=== PATIENT | female | born 1965 | race American Indian/Alaskan Native ===

== ENCOUNTER 2020-02-04 07:17 | Emergency (ER) | payer SELFPAY ==
--- NOTE | 2020-02-04 07:58 | XRay Report ---
CHEST 1 VIEW INDICATION: Chest Pain. Nausea and vomiting. COMPARISON: 07/16/2019 FINDINGS: Support devices: None. Heart: Within normal limits. Lungs/Pleura: No acute air space or interstitial disease. Additional findings: None. IMPRESSION: No acute findings. Signer Name: Johnny Martinez Jr, MD Signed: 02/04/2020 7:54 AM Workstation Name: [id number]
[2020-02-04 08:01] LABS: Basophils % (Auto) 0.4 % (0.0-1.8); Eosinophils % (Auto) 0.3 % (0.0-4.3); Hematocrit 38.5 % (30.3-42.9); Hemoglobin 13.2 gm/dl (10.1-14.3); Lymphocytes % (Auto) 15.2 % (13.4-35.0); Mean Corpuscular HGB Conc 34 % (30-34); Mean Corpuscular Volume 87 fl (79-97); Monocytes # (Auto) 0.3 K/mm3 (0.0-0.8); Platelet Count 313 K/mm3 (140-440); Red Blood Count 4.45 M/mm3 (3.65-5.03)
[2020-02-04 08:12] LABS: INR 0.94 (0.87-1.13)
[2020-02-04 08:13] LABS: Partial Thromboplastin Time 28.3 Sec. (24.2-36.6)
--- NOTE | 2020-02-04 09:27 | Emergency Department Report ---
ED General Adult HPI - General Chief complaint: Chest Pain Stated complaint: RT SIDE BREAST PAIN/HBP Time Seen by Provider: 02/04/20 09:25 Source: patient Mode of arrival: Ambulatory Limitations: No Limitations - History of Present Illness Initial comments: This is a 54-year-old female who states that she has been compliant with her blood pressure medication. She states the only medicine she takes is lisinopril. She presented to the emergency department with elevated blood pressure. She complained of "my ribs are hurting". By this she indicated the right costal area. She denies cough or fever. She denies dyspnea. She states that the area is sore to the touch and hurts when she bends or twists and also hurts in the lower back. The area has been sore since yesterday. She does not recall a specific strain or activity associated with the pain. Patient has been admitted to the hospital with accelerated hypertension and chest pain in June 2019. 07/14 Discharge Summary: 53-year-old female with a past medical history of asthma, sickle cell trait, arthritis and hypertension who presents to ER with complaints of difficulty in breathing, chest tightness and palpitations since this evening. Patient states she was at work when she felt like her "heart was racing through her chest', she took her inhaler and went home. Throughout the night, the chest tightness returned and she decided to come to the ER. She describes midsternal chest pain, 10/10 as sudden, sharp with radiation to her neck. She states it has been relieved by rest and exacerbated with movement and deep breathing. Patient denies fever, chills or syncopal events. \\ Patient on admission was seen by cardiology had an echocardiogram which revealed abnormal diastolic dysfunction but with preserved EF. Stress test was done was negative. Family at bedside reports that the patient has been having elevated blood pressure BP medications were adjusted blood pressure is improved at our facility and will be discharged on prescription. No evidence of worsening shortness of breath She reports some cough Hypertensive urgency (malignant) resolved counseling provided to the patient Asthma exacerbation with hypoxia-patient discharged with tapering dose of steroid Atypical chest-likely secondary to acute bronchitis considering cough and tightness in the chest. Hypokalemia Tobacco use disorder-status of counseling provided to the patient on need to quit tobacco use she verbalized understanding -: Gradual Location: chest Radiation: non-radiation (Does not radiate to the back but also hurts in the lower back) Quality: aching Consistency: intermittent Improves with: none Worsens with: none Associated Symptoms: denies other symptoms - Related Data Home Medications Medication Instructions Recorded Confirmed Last Taken Methocarbamol [Robaxin] 500 mg PO BID 07/17/19 07/17/19 Unknown Previous Rx's Medication Instructions Recorded Last Taken Type Albuterol Mdi (or & Nicu Only) 2 puff IH QID PRN #8.5 gram 07/17/19 Unknown Rx [ProAir HFA Inhaler] AtorvaSTATin [Lipitor] 40 mg PO QHS #30 tablet 07/17/19 Unknown Rx lisinopriL [Zestril TAB] 20 mg PO DAILY #60 tab 07/17/19 Unknown Rx methylPREDNISolone [Medrol 4MG 4 mg PO . DIR #1 tab.ds.pk 07/17/19 Unknown Rx DOSEPAK (21 tabs)] Lisinopril/Hydrochlorothiazide 1 each PO DAILY #30 tablet 02/04/20 Unknown Rx [Zestoretic 10-12.5 mg Tablet] traMADoL [Ultram] 50 mg PO Q6HR PRN #10 tablet 02/04/20 Unknown Rx Allergies Allergy/AdvReac Type Severity Reaction Status Date / Time codeine Allergy Swelling Verified 07/17/19 00:11 Sulfa (Sulfonamide Allergy Swelling Verified 07/17/19 00:11 Antibiotics) IV DYE Allergy Swelling Uncoded 07/17/19 00:11 ED Review of Systems ROS: Stated complaint: RT SIDE BREAST PAIN/HBP Other details as noted in HPI Constitutional: denies: chills, fever Eyes: denies: eye pain, eye discharge, vision change ENT: denies: ear pain, throat pain Respiratory: denies: cough, shortness of breath, wheezing Cardiovascular: chest pain. denies: palpitations Endocrine: no symptoms reported Gastrointestinal: denies: abdominal pain, nausea, diarrhea Genitourinary: denies: urgency, dysuria, discharge Musculoskeletal: back pain. denies: joint swelling, arthralgia Skin: denies: rash, lesions Neurological: denies: headache, weakness, paresthesias Psychiatric: denies: anxiety, depression Hematological/Lymphatic: denies: easy bleeding, easy bruising ED Past Medical Hx - Past Medical History Hx Hypertension: Yes Hx Sickle Cell Disease: Yes Hx Asthma: Yes - Surgical History Past Surgical History?: No - Social History Smoking Status: Former Smoker - Medications Home Medications: Home Medications Medication Instructions Recorded Confirmed Last Taken Type Albuterol Mdi (or & Nicu Only) 2 puff IH QID PRN #8.5 gram 07/17/19 Unknown Rx [ProAir HFA Inhaler] AtorvaSTATin [Lipitor] 40 mg PO QHS #30 tablet 07/17/19 Unknown Rx Methocarbamol [Robaxin] 500 mg PO BID 07/17/19 07/17/19 Unknown History lisinopriL [Zestril TAB] 20 mg PO DAILY #60 tab 07/17/19 Unknown Rx methylPREDNISolone [Medrol 4MG 4 mg PO . DIR #1 tab.ds.pk 07/17/19 Unknown Rx DOSEPAK (21 tabs)] Lisinopril/Hydrochlorothiazide 1 each PO DAILY #30 tablet 02/04/20 Unknown Rx [Zestoretic 10-12.5 mg Tablet] traMADoL [Ultram] 50 mg PO Q6HR PRN #10 tablet 02/04/20 Unknown Rx ED Physical Exam - General Limitations: No Limitations General appearance: alert, in no apparent distress - Head Head exam: Present: atraumatic, normocephalic - Eye Eye exam: Present: normal appearance. Absent: scleral icterus - ENT ENT exam: Present: mucous membranes moist - Neck Neck exam: Present: normal inspection - Respiratory Respiratory exam: Present: normal lung sounds bilaterally, chest wall tenderness (Very reproducible discomfort to palpation of the right costal area). Absent: respiratory distress - Cardiovascular Cardiovascular Exam: Present: regular rate, normal rhythm. Absent: systolic mu rmur, diastolic murmur, rubs, gallop - GI/Abdominal GI/Abdominal exam: Present: soft, normal bowel sounds. Absent: distended, tenderness, guarding, rebound, rigid - Extremities Exam Extremities exam: Present: normal inspection - Back Exam Back exam: Present: normal inspection. Absent: CVA tenderness (R), CVA tenderness (L), muscle spasm, paraspinal tenderness, vertebral tenderness - Neurological Exam Neurological exam: Present: alert, oriented X3, CN II-XII intact. Absent: motor sensory deficit - Psychiatric Psychiatric exam: Present: normal affect, normal mood - Skin Skin exam: Present: warm, dry, intact, normal color. Absent: rash ED Course Vital Signs 08/12/20 08/12/20 08/12/20 07:21 09:59 11:57 Temperature 97.5 F L 98.3 F Pulse Rate 108 H 67 56 L Respiratory 16 18 Rate Blood Pressure 194/110 212/108 Blood Pressure 120/74 [Right] O2 Sat by Pulse 99 100 Oximetry - Reevaluation(s) Reevaluation #1: Patient states that she has never had a CT exam before but she is allergic to iodine. She states that she was told this at [facility] when her "face swelled up". As such we did not proceed with a CT examination with contrast. A VQ scan was ordered. It was negative. The patient's pain is highly reproducible. I do not think she requires further work-up. She is quite comfortable at this time. We will refer to outpatient for follow-up and further management of her hypertension. 02/04/20 13:55 Reevaluation #2: Patient's blood pressure is now 174/67. She has some persistent systolic hypertension. She states that she takes lisinopril 10. I am going to change that to lisinopril with a diuretic. We will give her an analgesic as well. She is appropriate for outpatient follow-up 02/04/20 13:59 ED Medical Decision Making - Lab Data Result diagrams: 02/04/20 07:47 02/04/20 07:47 Laboratory Results - last 24 hr 02/04/20 02/04/20 02/04/20 07:47 07:47 07:47 WBC 6.7 RBC 4.45 Hgb 13.2 Hct 38.5 MCV 87 MCH 30 MCHC 34 RDW 14.0 Plt Count 313 Lymph % (Auto) 15.2 [place] % (Auto) 5.0 Eos % (Auto) 0.3 Baso % (Auto) 0.4 Lymph # 1.0 L [place] # 0.3 Eos # 0.0 Baso # 0.0 Seg Neutrophils % 79.1 H Seg Neutrophils # 5.3 PT 12.8 INR 0.94 APTT 28.3 D-Dimer 253.47 H Sodium 142 Potassium 4.2 Chloride 102.0 Carbon Dioxide 27 Anion Gap 17 BUN 8 Creatinine 0.5 L Estimated GFR > 60 BUN/Creatinine Ratio 16 Glucose 141 H Calcium 10.0 Magnesium Total Bilirubin Direct Bilirubin Indirect Bilirubin AST ALT Alkaline Phosphatase Total Creatine Kinase CK-MB (CK-2) CK-MB (CK-2) Rel Index Troponin T < 0.010 NT-Pro-B Natriuret Pep Total Protein Albumin Albumin/Globulin Ratio Blood Type Antibody Screen 02/04/20 02/04/20 02/04/20 10:16 10:16 10:16 WBC RBC Hgb Hct MCV MCH MCHC RDW Plt Count Lymph % (Auto) [place] % (Auto) Eos % (Auto) Baso % (Auto) Lymph # [place] # Eos # Baso # Seg Neutrophils % Seg Neutrophils # PT 13.6 INR 1.02 APTT 25.6 D-Dimer Sodium Potassium Chloride Carbon Dioxide Anion Gap BUN Creatinine Estimated GFR BUN/Creatinine Ratio Glucose Calcium Magnesium Total Bilirubin Direct Bilirubin Indirect Bilirubin AST ALT Alkaline Phosphatase Total Creatine Kinase 179 H CK-MB (CK-2) 1.7 CK-MB (CK-2) Rel Index 0.9 Troponin T < 0.010 NT-Pro-B Natriuret Pep Total Protein Albumin Albumin/Globulin Ratio Blood Type Antibody Screen 02/04/20 02/04/20 10:16 10:19 WBC RBC Hgb Hct MCV MCH MCHC RDW Plt Count Lymph % (Auto) [place] % (Auto) Eos % (Auto) Baso % (Auto) Lymph # [place] # Eos # Baso # Seg Neutrophils % Seg Neutrophils # PT INR APTT D-Dimer Sodium Potassium Chloride Carbon Dioxide Anion Gap BUN Creatinine Estimated GFR BUN/Creatinine Ratio Glucose Calcium Magnesium 2.00 Total Bilirubin 0.70 Direct Bilirubin < 0.2 Indirect Bilirubin 0.5 AST 17 ALT 11 Alkaline Phosphatase 82 Total Creatine Kinase CK-MB (CK-2) CK-MB (CK-2) Rel Index Troponin T NT-Pro-B Natriuret Pep 76.82 Total Protein 6.9 Albumin 4.1 Albumin/Globulin Ratio 1.5 Blood Type B POSITIVE Antibody Screen Negative - EKG Data -: EKG Interpreted by In EKG shows normal: sinus rhythm, axis, intervals, QRS complexes, ST-T waves Rate: normal - EKG Data Interpretation: nonspecific ST-T wave jos, other (1 PVC) - Radiology Data Radiology results: report reviewed (VQ scan very low probability of pulmonary embolism) Critical care attestation.: If time is entered above; I have spent that time in minutes in the direct care of this critically ill patient, excluding procedure time. ED Disposition Clinical Impression: Poorly-controlled hypertension, Chest wall pain Disposition: DC- TO HOME OR SELFCARE Is pt being admited?: No Does the pt Need Aspirin: No Condition: Stable Instructions: Chest Pain (ED) Additional Instructions: Follow-up with primary care clinic. Return to emergency department any acute change or problem. Prescriptions: traMADoL [Ultram] 50 mg PO Q6HR PRN #10 tablet PRN Reason: Pain Lisinopril/Hydrochlorothiazide [Zestoretic 10-12.5 mg Tablet] 1 each PO DAILY #30 tablet Referrals: [facility] [Provider Group] - 2-3 Days Time of Disposition: 14:00
[2020-02-04] MEDS ORDERED: MORPHINE 2 MG/1 ML INJ IV ONE (09:34)
[2020-02-04] MEDS ORDERED: ONDANSETRON 4 MG/2 ML INJ IV ONE (09:34)
[2020-02-04 10:42] LABS: Blood Urea Nitrogen 8 mg/dL (7-17); Hemolysis Index 8
[2020-02-04 10:47] LABS: BUN/Creatinine Ratio 16
--- NOTE | 2020-02-04 11:15 | Nuclear Medicine Report ---
NUCLEAR MEDICINE PERFUSION ONLY LUNG SCAN HISTORY: Right-sided chest pain, shortness of breath TECHNIQUE: Multiple projections of the chest were obtained following injection of 5.5 mCi of techneti um 99m MAA. COMPARISON: AP chest performed the same day. FINDINGS: There is homogeneous distribution of the radiotracer throughout both lungs. No segmental pe rfusion defect is identified. IMPRESSION: Very low probability for pulmonary embolus. Signer Name: Johnny Martinez Jr, MD Signed: 02/04/2020 11:10 AM Workstation Name: [id number]
[2020-02-04 11:23] LABS: INR 1.02 (0.87-1.13)
[2020-02-04 11:24] LABS: Partial Thromboplastin Time 25.6 Sec. (24.2-36.6)
[2020-02-04 11:31] LABS: Creatine Kinase MB 1.7 ng/mL (0.0-4.0)
[2020-02-04 11:35] LABS: Alanine Aminotransferase 11 units/L (7-56); Albumin 4.1 g/dL (3.9-5)
[2020-02-04 11:42] LABS: Bilirubin,Direct < 0.2 mg/dL (0-0.2)
[2020-02-04 11:59] VITALS: BP 120/74
[2020-02-04] MEDS ORDERED: traMADol 50 MG TAB PO ONE (14:02)
== END 2020-02-04 15:12 | disposition home or self-care (01) ==
LOC: ED 07:17
DX: I10 Essential (primary) hypertension (principal); R07.89 Other chest pain; J45.909 Unspecified asthma, uncomplicated; Z79.899 Other long term (current) drug therapy; Z88.6 Allergy status to analgesic agent; Z88.2 Allergy status to sulfonamides; Z91.041 Radiographic dye allergy status; Z87.891 Personal history of nicotine dependence
CPT/HCPCS: 36415; 71045; 78580; 80048; 80076; 82550; 82553; 83735; 83880; 84484; 85025; 85379; 85610; 85730; 86850; 86900; 86901; 93005; 96374; 96375; 99284; A9540; J2270; J2405

== ENCOUNTER 2020-04-04 09:00 | Emergency (ER) | payer SELFPAY ==
[2020-04-04 09:07] VITALS: BP 153/87
--- NOTE | 2020-04-04 09:41 | Emergency Department Report ---
ED ENT HPI - General Chief complaint: Dental/Oral Stated complaint: TEETH PAIN/SORE THROAT Time Seen by Provider: 04/04/20 09:32 Source: patient Mode of arrival: Ambulatory Limitations: No Limitations - History of Present Illness Initial comments: The patient was evaluated in the emergency department for symptoms described in the history of present illness. He/she was evaluated in the context of the global COVID-19 pandemic, which necessitated consideration that the patient might be at risk for infection with the virus that causes COVID-19. Instit utional protocols and algorithms that pertain to the evaluation of patients at risk for COVID-19 are in a state of rapid change based on information released by regulatory bodies including the CDC and federal and state organizations. These policies and algorithms were followed during the patient's care in the emergency department. Please note that these policies, procedures and recommendations changed on a rapid basis. 54-year-old -[place] female presents to the emergency room for 2-day history of dental pain located in the left upper jaw. Patient reports that she feels she has an abscess. Patient is aware that she has multiple dental caries. Patient denies any fever chills no nausea no vomiting. Patient states she last took ibuprofen last night which did not help much. Patient does admit to multiple allergies to codeine and sulfur and iodine. Patient does have a history of hypertension and takes her blood pressure medications as prescribed. MD complaint: tooth pain Onset/Timin -: days(s) Location: tooth # (14,15 19) Severity: severe Severity scale (0 -10): 9 Quality: stabbing, aching, sharp Consistency: constant Improves with: none Worsens with: eating Associated Symptoms: gum swelling, toothache - Related Data Home Medications Medication Instructions Recorded Confirmed Last Taken Methocarbamol [Robaxin] 500 mg PO BID 07/17/19 07/17/19 Unknown Previous Rx's Medication Instructions Recorded Last Taken Type Albuterol Mdi (or & Nicu Only) 2 puff IH QID PRN #8.5 gram 07/17/19 Unknown Rx [ProAir HFA Inhaler] AtorvaSTATin [Lipitor] 40 mg PO QHS #30 tablet 07/17/19 Unknown Rx lisinopriL [Zestril TAB] 20 mg PO DAILY #60 tab 07/17/19 Unknown Rx methylPREDNISolone [Medrol 4MG 4 mg PO . DIR #1 tab.ds.pk 07/17/19 Unknown Rx DOSEPAK (21 tabs)] Lisinopril/Hydrochlorothiazide 1 each PO DAILY #30 tablet 02/04/20 Unknown Rx [Zestoretic 10-12.5 mg Tablet] traMADoL [Ultram] 50 mg PO Q6HR PRN #10 tablet 02/04/20 Unknown Rx Clindamycin [Clindamycin CAP] 300 mg PO Q8H 10 Days #30 cap 04/04/20 Unknown Rx Allergies Allergy/AdvReac Type Severity Reaction Status Date / Time codeine Allergy Swelling Verified 07/17/19 00:11 Sulfa (Sulfonamide Allergy Swelling Verified 07/17/19 00:11 Antibiotics) IV DYE Allergy Swelling Uncoded 07/17/19 00:11 ED Dental HPI - General Chief complaint: Dental/Oral Stated complaint: TEETH PAIN/SORE THROAT Time Seen by Provider: 04/04/20 09:32 Source: patient Mode of arrival: Ambulatory Limitations: No Limitations - Related Data Home Medications Medication Instructions Recorded Confirmed Last Taken Methocarbamol [Robaxin] 500 mg PO BID 07/17/19 07/17/19 Unknown Previous Rx's Medication Instructions Recorded Last Taken Type Albuterol Mdi (or & Nicu Only) 2 puff IH QID PRN #8.5 gram 07/17/19 Unknown Rx [ProAir HFA Inhaler] AtorvaSTATin [Lipitor] 40 mg PO QHS #30 tablet 07/17/19 Unknown Rx lisinopriL [Zestril TAB] 20 mg PO DAILY #60 tab 07/17/19 Unknown Rx methylPREDNISolone [Medrol 4MG 4 mg PO . DIR #1 tab.ds.pk 07/17/19 Unknown Rx DOSEPAK (21 tabs)] Lisinopril/Hydrochlorothiazide 1 each PO DAILY #30 tablet 02/04/20 Unknown Rx [Zestoretic 10-12.5 mg Tablet] traMADoL [Ultram] 50 mg PO Q6HR PRN #10 tablet 02/04/20 Unknown Rx Clindamycin [Clindamycin CAP] 300 mg PO Q8H 10 Days #30 cap 04/04/20 Unknown Rx Allergies Allergy/AdvReac Type Severity Reaction Status Date / Time codeine Allergy Swelling Verified 07/17/19 00:11 Sulfa (Sulfonamide Allergy Swelling Verified 07/17/19 00:11 Antibiotics) IV DYE Allergy Swelling Uncoded 07/17/19 00:11 ED Review of Systems ROS: Stated complaint: TEETH PAIN/SORE THROAT Other details as noted in HPI ED Past Medical Hx - Past Medical History Previous Medical History?: Yes Hx Hypertension: Yes Hx Sickle Cell Disease: No (Sickle cell trait) Hx Asthma: Yes - Surgical History Past Surgical History?: No - Social History Smoking Status: Former Smoker Substance Use Type: None - Medications Home Medications: Home Medications Medication Instructions Recorded Confirmed Last Taken Type Albuterol Mdi (or & Nicu Only) 2 puff IH QID PRN #8.5 gram 07/17/19 Unknown Rx [ProAir HFA Inhaler] AtorvaSTATin [Lipitor] 40 mg PO QHS #30 tablet 07/17/19 Unknown Rx Methocarbamol [Robaxin] 500 mg PO BID 07/17/19 07/17/19 Unknown History lisinopriL [Zestril TAB] 20 mg PO DAILY #60 tab 07/17/19 Unknown Rx methylPREDNISolone [Medrol 4MG 4 mg PO . DIR #1 tab.ds.pk 07/17/19 Unknown Rx DOSEPAK (21 tabs)] Lisinopril/Hydrochlorothiazide 1 each PO DAILY #30 tablet 02/04/20 Unknown Rx [Zestoretic 10-12.5 mg Tablet] traMADoL [Ultram] 50 mg PO Q6HR PRN #10 tablet 02/04/20 Unknown Rx Clindamycin [Clindamycin CAP] 300 mg PO Q8H 10 Days #30 cap 04/04/20 Unknown Rx ED Physical Exam - General Limitations: No Limitations General appearance: alert, in no apparent distress - Head Head exam: Present: atraumatic, normocephalic - Eye Eye exam: Present: normal appearance - ENT ENT exam: Present: mucous membranes moist - Expanded ENT Exam Expanded Teeth exam: Present: dental caries, dental tenderness # (14,19,15), gingival enlargement Throat exam: Positive: normal inspection. Negative: tonsillar erythema, tonsillomegaly, tonsillar exudate - Neck Neck exam: Present: normal inspection, full ROM. Absent: lymphadenopathy - Respiratory Respiratory exam: Present: normal lung sounds bilaterally. Absent: respiratory distress - Cardiovascular Cardiovascular Exam: Present: regular rate, normal rhythm. Absent: systolic murmur, diastolic murmur, rubs, gallop - Back Exam Back exam: Present: normal inspection - Neurological Exam Neurological exam: Present: alert, oriented X3, normal gait - Psychiatric Psychiatric exam: Present: normal affect, normal mood - Skin Skin exam: Present: warm, dry, intact, normal color. Absent: rash ED Course Vital Signs 04/04/20 09:02 Temperature 98.1 F Pulse Rate 104 H Respiratory 20 Rate Blood Pressure 153/87 O2 Sat by Pulse 100 Oximetry ED Medical Decision Making - Medical Decision Making 54-year-old -[place] female presents to the emergency room for 2-day history of dental pain located in the left upper jaw. Patient reports that she feels she has an abscess. Patient is aware that she has multiple dental caries. Patient denies any fever chills no nausea no vomiting. Patient states she last took ibuprofen last night which did not help much. Patient does admit to multiple allergies to codeine and sulfur and iodine. Patient does have a history of hypertension and takes her blood pressure medications as prescribed. Patient be discharged home on clindamycin 300 mg 3 times daily for 10 days instructed to take [id number] ibuprofen or Tylenol for pain management. Heart rate regular rate and rhythm approximately 89 bpm. Patient is stable to be discharged home Critical care attestation.: If time is entered above; I have spent that time in minutes in the direct care of this critically ill patient, excluding procedure time. ED Disposition Clinical Impression: Dental abscess, Dental caries extending into dentin Disposition: DC-01 TO HOME OR SELFCARE Is pt being admited?: No Does the pt Need Aspirin: No Condition: Stable Instructions: Dental Abscess (ED), Dental Caries (ED) Additional Instructions: Complete antibiotics as prescribed. Take Tylenol or ibuprofen as needed for pain management. It is very important for you to follow-up with a dentist. Prescriptions: Clindamycin [Clindamycin CAP] 300 mg PO Q8H 10 Days #30 cap Referrals: [facility] [Outside] - 3-5 Days [facility] [Outside] - 3-5 Days Forms: Work/School Release Form(ED)
== END 2020-04-04 09:56 | disposition home or self-care (01) ==
LOC: ED 09:00
DX: K02.9 Dental caries, unspecified (principal); K04.7 Periapical abscess without sinus; I10 Essential (primary) hypertension; D57.3 Sickle-cell trait; J45.909 Unspecified asthma, uncomplicated; Z79.899 Other long term (current) drug therapy; Z87.891 Personal history of nicotine dependence; Z88.4 Allergy status to anesthetic agent; Z88.2 Allergy status to sulfonamides; Z91.041 Radiographic dye allergy status
CPT/HCPCS: 99282

== ENCOUNTER 2020-07-29 12:03 | Emergency (ER) | payer SELFPAY ==
--- NOTE | 2020-07-29 12:10 | Event Note ---
ED Screening Note Date of service: 07/29/20 Time: 12:09 ED Screening Note: 54-year-old female presents with substernal lower chest pain, shortness of breath and paroxysmal nocturnal dyspnea This initial assessment/diagnostic orders/clinical plan/treatment(s) is/are subject to change based on patients health status, clinical progression and re- assessment by fellow clinical providers in the ED. Further treatment and workup at subsequent clinical providers discretion. Patient/guardian urged not to elope from the ED as their condition may be serious if not clinically assessed and managed. Initial orders include: Cardiac protocol
--- NOTE | 2020-07-29 13:01 | XRay Report ---
CHEST 2 VIEWS INDICATION / CLINICAL INFORMATION: pain. COMPARISON: 02/04/2020 FINDINGS: SUPPORT DEVICES: None. HEART / MEDIASTINUM: No significant abnormality. LUNGS / PLEURA: No significant pulmonary or pleural abnormality. No pneumothorax. ADDITIONAL FINDINGS: No significant additional findings. IMPRESSION: 1. No acute findings. Signer Name: Brian Ramon MD Signed: 07/29/2020 12:56 PM Workstation Name: [id number]
[2020-07-29 13:12] LABS: Basophils % (Auto) 0.6 % (0.0-1.8); Eosinophils # (Auto) 0.1 K/mm3 (0.0-0.4); Eosinophils % (Auto) 0.9 % (0.0-4.3); Hematocrit 37.2 % (30.3-42.9); Hemoglobin 12.9 gm/dl (10.1-14.3); Lymphocytes # (Auto) 1.9 K/mm3 (1.2-5.4); Lymphocytes % (Auto) 34.5 % (13.4-35.0); Mean Corpuscular HGB Conc 35 % (30-34); Mean Corpuscular Volume 87 fl (79-97); Monocytes # (Auto) 0.4 K/mm3 (0.0-0.8); Monocytes % (Auto) 7.3 % (0.0-7.3); Platelet Count 314 K/mm3 (140-440); Red Blood Count 4.28 M/mm3 (3.65-5.03); Red Cell Distribution Width 13.5 % (13.2-15.2)
[2020-07-29 13:15] LABS: Alanine Aminotransferase 10 units/L (7-56); Albumin 4.5 g/dL (3.9-5); Blood Urea Nitrogen 10 mg/dL (7-17); Calcium 9.9 mg/dL (8.4-10.2); Hemolysis Index 0
[2020-07-29 13:19] LABS: INR 0.97 (0.87-1.13)
[2020-07-29 13:20] LABS: BUN/Creatinine Ratio 20; Partial Thromboplastin Time 26.8 Sec. (24.2-36.6)
[2020-07-29] MEDS ORDERED: hydroCHLOROthiazide 25 MG TAB PO ONE (14:27)
[2020-07-29] MEDS ORDERED: LISINOPRIL 20 MG TAB PO ONE (14:27)
--- NOTE | 2020-07-29 15:00 | Emergency Department Report ---
ED Chest Pain HPI - General Chief Complaint: Chest Pain Stated Complaint: CHEST PAIN/ABCESS Time Seen by Provider: 07/29/20 13:35 Source: patient Mode of arrival: Ambulatory Limitations: No Limitations - History of Present Illness Initial Comments: CC: I know something is wrong with my body. HPI: This is a 54 yo female with hx of HTN, asthma, thyroid disease and hypercholesterolemia who presents with fatigue, chills, sore throat, body aches and cough for 2 weeks. 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 Patient has multiple contacts. She is unclear if she had COVID-19 exposure. She was tested for COVID-19 at outside hospital 1 week ago. Patient denies chest pain headache. She explains that she has a burning feeling tingling sensation throughout her body. She does not have any discrete discomfort. Patient has been lost to follow-up with primary care since moving to [facility] 1 year ago. She was followed previously at clinics to [facility]. Patient has attempted to obtain care at [facility]. However due to COVID-19 pandemic, most medical practices are full. MD Complaint: chest pain -: week(s) (2 weeks) Onset: during rest Severity: mild Quality: other (Burning sensation throughout her body) Consistency: now resolved Improves With: nothing Worsens With: nothing Context: other (Associated with chills cough body aches sore throat) Treatments Prior to Arrival: other (Evaluation [facility] 1 week ago recent negative COVID-19 test) - Related Data Home Medications Medication Instructions Recorded Confirmed Last Taken Methocarbamol [Robaxin] 500 mg PO BID 07/17/19 07/17/19 Unknown Previous Rx's Medication Instructions Recorded Last Taken Type Albuterol Mdi (or & Nicu Only) 2 puff IH QID PRN #8.5 gram 07/17/19 Unknown Rx [ProAir HFA Inhaler] AtorvaSTATin [Lipitor] 40 mg PO QHS #30 tablet 07/17/19 Unknown Rx lisinopriL [Zestril TAB] 20 mg PO DAILY #60 tab 07/17/19 Unknown Rx methylPREDNISolone [Medrol 4MG 4 mg PO . DIR #1 tab.ds.pk 07/17/19 Unknown Rx DOSEPAK (21 tabs)] Lisinopril/Hydrochlorothiazide 1 each PO DAILY #30 tablet 02/04/20 Unknown Rx [Zestoretic 10-12.5 mg Tablet] traMADoL [Ultram] 50 mg PO Q6HR PRN #10 tablet 02/04/20 Unknown Rx Clindamycin [Clindamycin CAP] 300 mg PO Q8H 10 Days #30 cap 04/04/20 Unknown Rx Lisinopril/Hydrochlorothiazide 1 each PO DAILY #30 tablet 07/29/20 Unknown Rx [Zestoretic 20-12.5 mg] Allergies Allergy/AdvReac Type Severity Reaction Status Date / Time codeine Allergy Swelling Verified 07/17/19 00:11 Sulfa (Sulfonamide Allergy Swelling Verified 07/17/19 00:11 Antibiotics) IV DYE Allergy Swelling Uncoded 07/17/19 00:11 Heart Score - HEART Score History: Slightly suspicious EKG: Normal Age: 45-65 Risk factors: 1-2 risk factors Troponin: < normal limit HEART Score: 2 ED Review of Systems ROS: Stated complaint: CHEST PAIN/ABCESS Other details as noted in HPI Comment: All other systems reviewed and negative Constitutional: chills. denies: fever, malaise Respiratory: cough, shortness of breath Cardiovascular: chest pain ED Past Medical Hx - Past Medical History Previous Medical History?: Yes Hx Hypertension: Yes Hx Sickle Cell Disease: No (Sickle cell trait) Hx Asthma: Yes - Surgical History Past Surgical History?: No - Social History Smoking Status: Never Smoker Substance Use Type: None - Medications Home Medications: Home Medications Medication Instructions Recorded Confirmed Last Taken Type Albuterol Mdi (or & Nicu Only) 2 puff IH QID PRN #8.5 gram 07/17/19 Unknown Rx [ProAir HFA Inhaler] AtorvaSTATin [Lipitor] 40 mg PO QHS #30 tablet 07/17/19 Unknown Rx Methocarbamol [Robaxin] 500 mg PO BID 07/17/19 07/17/19 Unknown History lisinopriL [Zestril TAB] 20 mg PO DAILY #60 tab 07/17/19 Unknown Rx methylPREDNISolone [Medrol 4MG 4 mg PO . DIR #1 tab.ds.pk 07/17/19 Unknown Rx DOSEPAK (21 tabs)] Lisinopril/Hydrochlorothiazide 1 each PO DAILY #30 tablet 02/04/20 Unknown Rx [Zestoretic 10-12.5 mg Tablet] traMADoL [Ultram] 50 mg PO Q6HR PRN #10 tablet 02/04/20 Unknown Rx Clindamycin [Clindamycin CAP] 300 mg PO Q8H 10 Days #30 cap 04/04/20 Unknown Rx Lisinopril/Hydrochlorothiazide 1 each PO DAILY #30 tablet 07/29/20 Unknown Rx [Zestoretic 20-12.5 mg] ED Physical Exam - General Limitations: No Limitations General appearance: alert, in no apparent distress - Head Head exam: Present: atraumatic, normocephalic - Eye Eye exam: Present: normal appearance - ENT ENT exam: Present: mucous membranes moist - Neck Neck exam: Present: normal inspection, full ROM - Respiratory Respiratory exam: Present: normal lung sounds bilaterally. Absent: respiratory distress, wheezes, rales, rhonchi - Cardiovascular Cardiovascular Exam: Present: regular rate, normal rhythm, normal heart sounds. Absent: systolic murmur, diastolic murmur, rubs, gallop - GI/Abdominal GI/Abdominal exam: Present: soft, normal bowel sounds. Absent: distended, tenderness, guarding, rebound - Extremities Exam Extremities exam: Present: normal inspection - Neurological Exam Neurological exam: Present: alert, oriented X3 - Psychiatric Psychiatric exam: Present: normal affect, normal mood - Skin Skin exam: Present: warm, dry, intact, normal color. Absent: rash ED Course Vital Signs 07/29/20 07/29/20 07/29/20 12:11 13:25 13:31 Temperature 98.1 F Pulse Rate 104 H 87 81 Respiratory 18 16 21 Rate Blood Pressure 184/109 191/121 O2 Sat by Pulse 95 100 99 Oximetry ED Medical Decision Making - Lab Data Result diagrams: 07/29/20 12:39 07/29/20 12:39 Abnormal Lab Results 07/29/20 07/29/20 07/29/20 12:39 12:39 12:39 WBC 5.5 RBC 4.28 Hgb 12.9 Hct 37.2 MCV 87 MCH 30 MCHC 35 H RDW 13.5 Plt Count 314 Lymph % (Auto) 34.5 [place] % (Auto) 7.3 Eos % (Auto) 0.9 Baso % (Auto) 0.6 Lymph # (Auto) 1.9 [place] # (Auto) 0.4 Eos # (Auto) 0.1 Baso # (Auto) 0.0 Seg Neutrophils % 56.7 Seg Neutrophils # 3.1 PT 12.8 INR 0.97 APTT 26.8 Sodium 141 Potassium 3.7 Chloride 100.6 Carbon Dioxide 30 Anion Gap 14 BUN 10 Creatinine 0.5 L Estimated GFR > 60 BUN/Creatinine Ratio 20 Glucose 84 Calcium 9.9 Total Bilirubin 0.90 AST 17 ALT 10 Alkaline Phosphatase 90 Troponin T < 0.010 Total Protein 7.4 Albumin 4.5 Albumin/Globulin Ratio 1.6 Lipase 28 - EKG Data -: EKG Interpreted by Me EKG shows normal: sinus rhythm, axis, intervals, QRS complexes, ST-T waves Rate: normal - EKG Data Interpretation: normal EKG - Radiology Data Radiology results: report reviewed, image reviewed Chest radiograph: No acute findings - Medical Decision Making This is a 54-year-old female who presents with fatigue chills body aches sore throat cough shortness of breath for 2 weeks. I suspect COVID-19 infection. I recommended self-isolation self quarantine until she receives a negative test. Patient had atypical chest pain. She did not endorse chest pain to me. She endorsed chest pain to the provider triage. Heart score 2. Troponin negative. I do not suspect ACS or life-threatening emergent cause. Patient also is highly concerned that she has not had primary access to medical care. I did refill her blood pressure medication 90-day supply. No evidence of endorgan damage. CBC chemistry troponin within normal limits. I have provided referral to our outpatient medicine physician. Critical care attestation.: If time is entered above; I have spent that time in minutes in the direct care of this critically ill patient, excluding procedure time. ED Disposition Clinical Impression: Hypertensive urgency, Suspected COVID-19 virus infection Disposition: DC-01 TO HOME OR SELFCARE Is pt being admited?: No Does the pt Need Aspirin: No Condition: Stable Instructions: Hypertension, Adult, [id number] Prescriptions: Lisinopril/Hydrochlorothiazide [Zestoretic 20-12.5 mg] 1 each PO DAILY #30 tablet Referrals: KELLI BEDOLLA MD [Staff Physician] - 3-5 Days
[2020-07-29 15:33] VITALS: BP 151/92
== END 2020-07-29 15:33 | disposition home or self-care (01) ==
LOC: ED 12:03
DX: I16.0 Hypertensive urgency (principal); J45.909 Unspecified asthma, uncomplicated; Z20.828 Contact with and (suspected) exposure to other viral communicable diseases; Z88.2 Allergy status to sulfonamides; Z88.8 Allergy status to other drugs, medicaments and biological substances; Z79.899 Other long term (current) drug therapy
CPT/HCPCS: 36415; 71046; 80053; 83690; 84484; 85025; 85610; 85730; 93005

== ENCOUNTER 2020-09-25 10:22 | Emergency (ER) | payer SELFPAY ==
[2020-09-25 10:39] VITALS: BP 155/89
[2020-09-25] MEDS ORDERED: ACETAMINOPHEN 325 MG TAB PO ONE (10:52)
--- NOTE | 2020-09-25 10:55 | Event Note ---
ED Screening Note Date of service: 09/25/20 Time: 10:53 ED Screening Note: pt has pmhx of HTN and asthma c/o lower back pain/right flank pain, abdominal pain, bilateral hand pain, dysuria and urinary frequency since yesterday she denies vomiting, nausea, bowel changes, chest pain, sob, cough or uri symptoms, fever or chills This initial assessment/diagnostic orders/clinical plan/treatment(s) is/are subject to change based on patients health status, clinical progression and re- assessment by fellow clinical providers in the ED. Further treatment and workup at subsequent clinical providers discretion. Patient/guardian urged not to elope from the ED as their condition may be serious if not clinically assessed and managed. Initial orders include: Labs/UA
[2020-09-25 11:31] LABS: Bilirubin,Urine NEG (Negative); Blood,Urine MOD (Negative); Color,Urine Yellow (Yellow); Hyaline Casts,Urine 1 /LPF; Mucus,Urine FEW /HPF; Protein,Urine <15 mg/dL mg/dL (Negative); Urobilinogen,Urine < 2.0 mg/dL (<2.0); WBC,Urine < 1.0 /HPF (0.0-6.0)
[2020-09-25 12:27] LABS: Basophils % (Auto) 0.6 % (0.0-1.8); Eosinophils % (Auto) 0.3 % (0.0-4.3); Hematocrit 35.6 % (30.3-42.9); Hemoglobin 12.3 gm/dl (10.1-14.3); Lymphocytes # (Auto) 1.3 K/mm3 (1.2-5.4); Lymphocytes % (Auto) 20.6 % (13.4-35.0); Mean Corpuscular HGB Conc 35 % (30-34); Mean Corpuscular Volume 89 fl (79-97); Monocytes # (Auto) 0.3 K/mm3 (0.0-0.8); Monocytes % (Auto) 4.9 % (0.0-7.3); Platelet Count 301 K/mm3 (140-440); Red Blood Count 4.02 M/mm3 (3.65-5.03); Red Cell Distribution Width 14.5 % (13.2-15.2)
[2020-09-25 12:52] LABS: Alanine Aminotransferase 11 units/L (7-56); Albumin 4.5 g/dL (3.9-5); Blood Urea Nitrogen 13 mg/dL (7-17); Calcium 9.6 mg/dL (8.4-10.2); Hemolysis Index 9
[2020-09-25 12:55] LABS: BUN/Creatinine Ratio 22
[2020-09-25] MEDS ORDERED: KETOROLAC 60 MG/2 ML INJ IM ONE (13:28)
--- NOTE | 2020-09-25 13:44 | Emergency Department Report ---
ED General Adult HPI - General Chief complaint: Back Pain/Injury Stated complaint: RT SIDE PAIN/PAIN WHILE PASSING URINE Time Seen by Provider: 09/25/20 12:55 Source: patient Mode of arrival: Ambulatory Limitations: No Limitations - History of Present Illness Initial comments: This 55-year-old female presents to the emergency room with multiple complaints she complains of lower back pain bilateral hand pain and left external ear pain. She also admits to pain with urination and urinary frequency. All of her symptoms started yesterday. She denies nausea and vomiting no coughing no fever no chest pain no shortness of breath. Patient has a past medical history of rheumatoid arthritis asthma and hypertension. She is in no acute distress states that she took Tylenol at home for pain with no relief. Location: back, upper extremity Quality: aching Consistency: constant Improves with: none Worsens with: none Associated Symptoms: denies: confusion, chest pain, cough, diaphoresis, fever/chills, loss of appetite, malaise, nausea/vomiting, rash, seizure, shortness of breath, syncope, weakness Treatments Prior to Arrival: other (Tylenol) - Related Data Home Medications Medication Instructions Recorded Confirmed Last Taken Methocarbamol [Robaxin] 500 mg PO BID 07/17/19 07/17/19 Unknown Previous Rx's Medication Instructions Recorded Last Taken Type Albuterol Mdi (or & Nicu Only) 2 puff IH QID PRN #8.5 gram 07/17/19 Unknown Rx [ProAir HFA Inhaler] AtorvaSTATin [Lipitor] 40 mg PO QHS #30 tablet 07/17/19 Unknown Rx lisinopriL [Zestril TAB] 20 mg PO DAILY #60 tab 07/17/19 Unknown Rx methylPREDNISolone [Medrol 4MG 4 mg PO . DIR #1 tab.ds.pk 07/17/19 Unknown Rx DOSEPAK (21 tabs)] Lisinopril/Hydrochlorothiazide 1 each PO DAILY #30 tablet 02/04/20 Unknown Rx [Zestoretic 10-12.5 mg Tablet] traMADoL [Ultram] 50 mg PO Q6HR PRN #10 tablet 02/04/20 Unknown Rx Clindamycin [Clindamycin CAP] 300 mg PO Q8H 10 Days #30 cap 04/04/20 Unknown Rx Lisinopril/Hydrochlorothiazide 1 each PO DAILY #30 tablet 07/29/20 Unknown Rx [Zestoretic 20-12.5 mg] Lisinopril/Hydrochlorothiazide 1 each PO DAILY 90 Days #90 tablet 07/29/20 Unknown Rx [Zestoretic 20-12.5 mg] Ibuprofen [Motrin] 600 mg PO Q8H PRN #21 tablet 09/25/20 Unknown Rx Allergies Allergy/AdvReac Type Severity Reaction Status Date / Time codeine Allergy Swelling Verified 07/17/19 00:11 Sulfa (Sulfonamide Allergy Swelling Verified 07/17/19 00:11 Antibiotics) IV DYE Allergy Swelling Uncoded 07/17/19 00:11 ED Review of Systems ROS: Stated complaint: RT SIDE PAIN/PAIN WHILE PASSING URINE Other details as noted in HPI Comment: All other systems reviewed and negative Constitutional: denies: see HPI, fever, malaise, weakness ENT: ear pain (Left ear pain). denies: dental pain, congestion Respiratory: denies: cough, shortness of breath, SOB with exertion, wheezing Cardiovascular: denies: chest pain, palpitations, dyspnea on exertion, edema, syncope, paroxysmal nocturnal dyspnea Endocrine: denies: excessive sweating, flushing, intolerance to cold Gastrointestinal: denies: abdominal pain, nausea Genitourinary: dysuria, frequency Musculoskeletal: back pain Skin: denies: rash, lesions, change in color, change in hair/nails Neurological: denies: headache, weakness, numbness, paresthesias Psychiatric: denies: anxiety, depression, auditory hallucinations, visual hallucinations ED Past Medical Hx - Past Medical History Hx Hypertension: Yes Hx Sickle Cell Disease: No (Sickle cell trait) Hx Asthma: Yes - Social History Smoking Status: Never Smoker - Medications Home Medications: Home Medications Medication Instructions Recorded Confirmed Last Taken Type Albuterol Mdi (or & Nicu Only) 2 puff IH QID PRN #8.5 gram 07/17/19 Unknown Rx [ProAir HFA Inhaler] AtorvaSTATin [Lipitor] 40 mg PO QHS #30 tablet 07/17/19 Unknown Rx Methocarbamol [Robaxin] 500 mg PO BID 07/17/19 07/17/19 Unknown History lisinopriL [Zestril TAB] 20 mg PO DAILY #60 tab 07/17/19 Unknown Rx methylPREDNISolone [Medrol 4MG 4 mg PO . DIR #1 tab.ds.pk 07/17/19 Unknown Rx DOSEPAK (21 tabs)] Lisinopril/Hydrochlorothiazide 1 each PO DAILY #30 tablet 02/04/20 Unknown Rx [Zestoretic 10-12.5 mg Tablet] traMADoL [Ultram] 50 mg PO Q6HR PRN #10 tablet 02/04/20 Unknown Rx Clindamycin [Clindamycin CAP] 300 mg PO Q8H 10 Days #30 cap 04/04/20 Unknown Rx Lisinopril/Hydrochlorothiazide 1 each PO DAILY #30 tablet 07/29/20 Unknown Rx [Zestoretic 20-12.5 mg] Lisinopril/Hydrochlorothiazide 1 each PO DAILY 90 Days #90 tablet 07/29/20 Unknown Rx [Zestoretic 20-12.5 mg] Ibuprofen [Motrin] 600 mg PO Q8H PRN #21 tablet 09/25/20 Unknown Rx ED Physical Exam - General Limitations: No Limitations General appearance: alert, in no apparent distress - Head Head exam: Present: atraumatic, normal inspection - Eye Eye exam: Present: normal appearance - ENT ENT exam: Present: normal exam, mucous membranes moist, TM's normal bilaterally, normal external ear exam - Neck Neck exam: Present: normal inspection. Absent: tenderness, meningismus, lymphadenopathy, thyromegaly - Respiratory Respiratory exam: Present: normal lung sounds bilaterally. Absent: respiratory distress, wheezes, rales - Cardiovascular Cardiovascular Exam: Present: regular rate, normal heart sounds - GI/Abdominal GI/Abdominal exam: Present: soft, normal bowel sounds. Absent: distended, tenderness, guarding, rebound - Extremities Exam Extremities exam: Present: normal inspection - Back Exam Back exam: Present: normal inspection. Absent: CVA tenderness (R), CVA t enderness (L) - Neurological Exam Neurological exam: Present: alert, oriented X3 - Psychiatric Psychiatric exam: Present: normal affect, normal mood - Skin Skin exam: Present: warm, dry, intact, normal color ED Course Vital Signs 09/25/20 10:37 Temperature 98.3 F Pulse Rate 89 Respiratory 18 Rate Blood Pressure 155/89 O2 Sat by Pulse 100 Oximetry ED Medical Decision Making - Lab Data Result diagrams: 09/25/20 11:45 09/25/20 11:45 - Medical Decision Making Ms. Wood 55-year-old lady she states that she has a history of rheumatoid arthritis she complained of back pain increase urine urinary frequency left ear pain and dysuria. On examination there were no abnormal findings. Her urinalysis is negative. After reevaluation patient states that she has been having feeling of effects from the pollen causing her to be more fatigued. Based on findings there is no need for any antibiotic at this time I discussed all findings with patient her pain is relieved which was mostly to her back and her bilateral hands she believes it is related to her arthritis. Plan is for patient to continue all her home meds and follow-up with her primary care doctor Critical Care Time: No Critical care attestation.: If time is entered above; I have spent that time in minutes in the direct care of this critically ill patient, excluding procedure time. ED Disposition Clinical Impression: Back pain Qualifiers: Back pain location: low back pain Chronicity: unspecified Back pain laterality: bilateral Sciatica presence: without sciatica Qualified Code(s): M54.5 - Low back pain Hand joint pain Qualifiers: Laterality: bilateral Qualified Code(s): M25.541 - Pain in joints of right hand; M25.542 - Pain in joints of left hand Disposition: TO HOME OR SELFCARE Is pt being admited?: No Does the pt Need Aspirin: No Condition: Stable Instructions: Joint Pain, Back Injury Prevention, [id number], Hand Exercises Additional Instructions: All your results blood work and urinalysis has no acute findings. Please call your primary care doctor and follow-up with him or her in the next 3 to 5 days. Take ibuprofen as prescribed 1 tablet every 6-8 hours as needed for pain please take with food. If you develop any worsening symptoms such as fever worsening abdominal pain or no improvement of your symptoms please return to the emergency room. Prescriptions: Ibuprofen [Motrin] 600 mg PO Q8H PRN #21 tablet PRN Reason: Pain Referrals: DIANE CHIANG MD [Primary Care Provider] - 3-5 Days KELLI BEDOLLA MD [Staff Physician] - 3-5 Days Time of Disposition: 15:01
== END 2020-09-25 14:00 | disposition home or self-care (01) ==
LOC: ED 10:22
DX: M54.5 Low back pain (principal); M25.541 Pain in joints of right hand; M25.542 Pain in joints of left hand; Z79.899 Other long term (current) drug therapy; Z88.6 Allergy status to analgesic agent; Z88.2 Allergy status to sulfonamides; Z91.041 Radiographic dye allergy status
CPT/HCPCS: 36415; 80053; 81001; 83690; 83735; 85025; 96372; 99283; J1885

== ENCOUNTER 2020-10-30 11:15 | Emergency (ER) | payer SELFPAY ==
[2020-10-30] MEDS ORDERED: ASPIRIN 325 MG TAB PO ONE ×2 (11:48→14:29)
--- NOTE | 2020-10-30 12:26 | XRay Report ---
CHEST 2 VIEWS INDICATION / CLINICAL INFORMATION: chest pain. COMPARISON: 07/29/2020 FINDINGS: SUPPORT DEVICES: None. HEART / MEDIASTINUM: No significant abnormality. LUNGS / PLEURA: No significant pulmonary or pleural abnormality. No pneumothorax. ADDITIONAL FINDINGS: No significant additional findings. IMPRESSION: 1. No acute findings. Signer Name: Jamel Poon MD Signed: 10/30/2020 12:22 PM Workstation Name: [id number]
[2020-10-30 12:30] LABS: Alanine Aminotransferase 13 units/L (7-56); Albumin 4.4 g/dL (3.9-5); Blood Urea Nitrogen 15 mg/dL (7-17); Calcium 9.9 mg/dL (8.4-10.2); Hemolysis Index 3
[2020-10-30 12:31] LABS: BUN/Creatinine Ratio 25
--- NOTE | 2020-10-30 12:32 | Event Note ---
ED Screening Note Date of service: 10/30/20 Time: 12:28 ED Screening Note: 55-year-old -[place] female presents to the emergency room for chest pain off and on x2 days he notes being persistent. She also complains of toothache. Pain is a 10 out of 10. History of hypertension and asthma. This initial assessment/diagnostic orders/clinical plan/treatment(s) is/are subject to change based on patients health status, clinical progression and re- assessment by fellow clinical providers in the ED. Further treatment and workup at subsequent clinical providers discretion. Patient/guardian urged not to elope from the ED as their condition may be serious if not clinically assessed and ma naged. Initial orders include: Cardiac protocol orders have been placed. Patient be evaluated in the main.
[2020-10-30 12:33] LABS: Hematocrit 36.5 % (30.3-42.9); Hemoglobin 12.6 gm/dl (10.1-14.3); Mean Corpuscular HGB Conc 35 % (30-34); Mean Corpuscular Volume 89 fl (79-97); Platelet Count 325 K/mm3 (140-440); Red Cell Distribution Width 14.1 % (13.2-15.2)
--- NOTE | 2020-10-30 12:56 | Emergency Department Report ---
ED Chest Pain HPI - General Chief Complaint: Chest Pain Stated Complaint: TOOTHACHE/CP Time Seen by Provider: 10/30/20 12:50 Source: patient Mode of arrival: Ambulatory Limitations: No Limitations - History of Present Illness Initial Comments: Chief complaint: Chest pain HPI: This is a 55-year-old female with history of asthma and hypertension who presents with 2 days of sharp intermittent chest pain. Chest pain gradual onset. I evaluated this patient earlier this year for similar symptoms. Patient had severe depression anxiety related to strenuous work environment. She has quit her job. She felt much better. She has been symptom-free. She denies any anxiety or depression. She was evaluated at [facility] for similar symptoms. She was evaluated by cardiology at that time. June 2019 she was admitted to this hospital. She underwent cardiac evaluation with cardiology consultation. At that time, July 17, 2019: Patient underwent negative Lexiscan. Normal rest and stress myocardial perfusion scan. No significant stress ischemia. No wall motion abnormality. Ejection fraction 64% Currently patient has severe hypertension. She has been compliant with her antihypertensive medication. She denies depression. She feels as though she is going to pass out. She feels lightheaded. Patient has sharp intermittent midsternal pain is worse with movement. She denies cough. She has mild shortness of breath. MD Complaint: chest pain -: Gradual, days(s) (2 days) Onset: during rest Pain Location: substernal Pain Radiation: none Severity: moderate, severe Severity scale (0 -10): 7 Quality: heaviness Consistency: intermittent Improves With: nothing Worsens With: movement Treatments Prior to Arrival: none - Related Data Home Medications Medication Instructions Recorded Confirmed Last Taken Methocarbamol [Robaxin] 500 mg PO BID 07/17/19 07/17/19 Unknown Previous Rx's Medication Instructions Recorded Last Taken Type Albuterol Mdi (or & Nicu Only) 2 puff IH QID PRN #8.5 gram 07/17/19 Unknown Rx [ProAir HFA Inhaler] AtorvaSTATin [Lipitor] 40 mg PO QHS #30 tablet 07/17/19 Unknown Rx lisinopriL [Zestril TAB] 20 mg PO DAILY #60 tab 07/17/19 Unknown Rx methylPREDNISolone [Medrol 4MG 4 mg PO . DIR #1 tab.ds.pk 07/17/19 Unknown Rx DOSEPAK (21 tabs)] Lisinopril/Hydrochlorothiazide 1 each PO DAILY #30 tablet 02/04/20 Unknown Rx [Zestoretic 10-12.5 mg Tablet] traMADoL [Ultram] 50 mg PO Q6HR PRN #10 tablet 02/04/20 Unknown Rx Clindamycin [Clindamycin CAP] 300 mg PO Q8H 10 Days #30 cap 04/04/20 Unknown Rx Lisinopril/Hydrochlorothiazide 1 each PO DAILY #30 tablet 07/29/20 Unknown Rx [Zestoretic 20-12.5 mg] Lisinopril/Hydrochlorothiazide 1 each PO DAILY 90 Days #90 tablet 07/29/20 Unknown Rx [Zestoretic 20-12.5 mg] Ibuprofen [Motrin] 600 mg PO Q8H PRN #21 tablet 09/25/20 Unknown Rx Allergies Allergy/AdvReac Type Severity Reaction Status Date / Time codeine Allergy Swelling Verified 07/17/19 00:11 Sulfa (Sulfonamide Allergy Swelling Verified 07/17/19 00:11 Antibiotics) IV DYE Allergy Swelling Uncoded 07/17/19 00:11 Heart Score - HEART Score History: Slightly suspicious EKG: Normal Age: 45-65 Risk factors: 1-2 risk factors Troponin: < normal limit HEART Score: 2 - EKG Read Time Time EKG Completed: 11:23 EKG Read Time: 11:27 ED Review of Systems ROS: Stated complaint: TOOTHACHE/CP Other details as noted in HPI Comment: All other systems reviewed and negative Constitutional: denies: fever, malaise ED Past Medical Hx - Past Medical History Previous Medical History?: Yes Hx Hypertension: Yes Hx Sickle Cell Disease: No (Sickle cell trait) Hx Asthma: Yes - Surgical History Past Surgical History?: No - Social History Smoking Status: Never Smoker Substance Use Type: None - Medications Home Medications: Home Medications Medication Instructions Recorded Confirmed Last Taken Type Albuterol Mdi (or & Nicu Only) 2 puff IH QID PRN #8.5 gram 07/17/19 Unknown Rx [ProAir HFA Inhaler] AtorvaSTATin [Lipitor] 40 mg PO QHS #30 tablet 07/17/19 Unknown Rx Methocarbamol [Robaxin] 500 mg PO BID 07/17/19 07/17/19 Unknown History lisinopriL [Zestril TAB] 20 mg PO DAILY #60 tab 07/17/19 Unknown Rx methylPREDNISolone [Medrol 4MG 4 mg PO . DIR #1 tab.ds.pk 07/17/19 Unknown Rx DOSEPAK (21 tabs)] Lisinopril/Hydrochlorothiazide 1 each PO DAILY #30 tablet 02/04/20 Unknown Rx [Zestoretic 10-12.5 mg Tablet] traMADoL [Ultram] 50 mg PO Q6HR PRN #10 tablet 02/04/20 Unknown Rx Clindamycin [Clindamycin CAP] 300 mg PO Q8H 10 Days #30 cap 04/04/20 Unknown Rx Lisinopril/Hydrochlorothiazide 1 each PO DAILY #30 tablet 07/29/20 Unknown Rx [Zestoretic 20-12.5 mg] Lisinopril/Hydrochlorothiazide 1 each PO DAILY 90 Days #90 tablet 07/29/20 Unknown Rx [Zestoretic 20-12.5 mg] Ibuprofen [Motrin] 600 mg PO Q8H PRN #21 tablet 09/25/20 Unknown Rx ED Physical Exam - General Limitations: No Limitations General appearance: alert, in no apparent distress, anxious - Head Head exam: Present: atraumatic, normocephalic - Eye Eye exam: Present: normal appearance - ENT ENT exam: Present: mucous membranes moist - Neck Neck exam: Present: normal inspection, full ROM - Respiratory Respiratory exam: Present: normal lung sounds bilaterally. Absent: respiratory distress, wheezes, rales, rhonchi - Cardiovascular Cardiovascular Exam: Present: regular rate, normal rhythm, normal heart sounds. Absent: systolic murmur, diastolic murmur, rubs, gallop - GI/Abdominal GI/Abdominal exam: Present: soft, normal bowel sounds. Absent: distended, tenderness, guarding, rebound - Extremities Exam Extremities exam: Present: normal inspection - Neurological Exam Neurological exam: Present: alert, oriented X3 - Psychiatric Psychiatric exam: Present: normal affect, normal mood - Skin Skin exam: Present: warm, dry, intact, normal color. Absent: rash ED Course Vital Signs 10/30/20 10/30/20 10/30/20 11:47 13:00 13:15 Temperature 98.4 F Pulse Rate 86 70 77 Respiratory 15 27 H 24 Rate Blood Pressure 169/93 163/89 156/90 O2 Sat by Pulse 100 100 100 Oximetry 10/30/20 10/30/20 10/30/20 13:31 13:45 14:01 Temperature Pulse Rate 73 71 71 Respiratory 21 22 19 Rate Blood Pressure 158/91 144/85 155/87 O2 Sat by Pulse 100 99 100 Oximetry 10/30/20 14:15 Temperature Pulse Rate 75 Respiratory 17 Rate Blood Pressure 159/90 O2 Sat by Pulse 99 Oximetry ED Medical Decision Making - Lab Data Result diagrams: 10/30/20 11:50 10/30/20 11:50 Laboratory Results - last 24 hr 10/30/20 10/30/20 11:50 11:50 WBC 5.4 RBC 4.10 Hgb 12.6 Hct 36.5 MCV 89 MCH 31 MCHC 35 H RDW 14.1 Plt Count 325 Baso % (Auto) Engineering Coordinator Sodium 138 Potassium 3.8 Chloride 96.5 L Carbon Dioxide 29 Anion Gap 16 BUN 15 Creatinine 0.6 Estimated GFR > 60 BUN/Creatinine Ratio 25 Glucose 89 Calcium 9.9 Total Bilirubin 0.90 AST 19 ALT 13 Alkaline Phosphatase 94 Troponin T < 0.010 Total Protein 7.5 Albumin 4.4 Albumin/Globulin Ratio 1.4 Laboratory Results - last 24 hr 10/30/20 10/30/20 10/30/20 11:50 11:50 12:59 WBC 5.4 RBC 4.10 Hgb 12.6 Hct 36.5 MCV 89 MCH 31 MCHC 35 H RDW 14.1 Plt Count 325 Baso % (Auto) Engineering Coordinator Add Manual Diff Complete Total Counted 100 Seg Neuts % (Manual) 63.0 Lymphocytes % (Manual) 30.0 Monocytes % (Manual) 4.0 Eosinophils % (Manual) 3.0 Nucleated RBC % Not Reportable Seg Neutrophils # Man 3.4 Band Neutrophils # 0.0 Lymphocytes # (Manual) 1.6 Abs React Lymphs (Man) 0.0 Monocytes # (Manual) 0.2 Eosinophils # (Manual) 0.2 Basophils # (Manual) 0.0 Metamyelocytes # 0.0 Myelocytes # 0.0 Promyelocytes # 0.0 Blast Cells # 0.0 WBC Morphology Not Reportable Hypersegmented Neuts Not Reportable Hyposegmented Neuts Not Reportable Hypogranular Neuts Not Reportable Smudge Cells Not Reportable Toxic Granulation Not Reportable Toxic Vacuolation Not Reportable Dohle Bodies Not Reportable Pelger-Huet Anomaly Not Reportable Mina Rods Not Reportable Platelet Estimate Consistent w auto Clumped Platelets Not Reportable Plt Clumps, EDTA Not Reportable Large Platelets Not Reportable Giant Platelets Not Reportable Platelet Satelliting Not Reportable Plt Morphology Comment Not Reportable RBC Morphology Normal Dimorphic RBCs Not Reportable Polychromasia Not Reportable Hypochromasia Not Reportable Poikilocytosis Not Reportable Anisocytosis Not Reportable Microcytosis Not Reportable Macrocytosis Not Reportable Spherocytes Not Reportable Pappenheimer Bodies Not Reportable Sickle Cells Not Reportable Target Cells Not Reportable Tear Drop Cells Not Reportable Ovalocytes Not Reportable Helmet Cells Not Reportable [place] Bodies Not Reportable [place] Rings Not Reportable [place] Cells Not Reportable Bite Cells Not Reportable Crenated Cell Not Reportable Elliptocytes Not Reportable Acanthocytes (Spur) Not Reportable Rouleaux Not Reportable Hemoglobin C Crystals Not Reportable Schistocytes Not Reportable Malaria parasites Not Reportable Jerry Bodies Not Reportable Hem Pathologist Commnt No D-Dimer 203.59 Sodium 138 Potassium 3.8 Chloride 96.5 L Carbon Dioxide 29 Anion Gap 16 BUN 15 Creatinine 0.6 Estimated GFR > 60 BUN/Creatinine Ratio 25 Glucose 89 Calcium 9.9 Total Bilirubin 0.90 AST 19 ALT 13 Alkaline Phosphatase 94 Troponin T < 0.010 Total Protein 7.5 Albumin 4.4 Albumin/Globulin Ratio 1.4 10/30/20 14:27 WBC RBC Hgb Hct MCV MCH MCHC RDW Plt Count Baso % (Auto) Add Manual Diff Total Counted Seg Neuts % (Manual) Lymphocytes % (Manual) Monocytes % (Manual) Eosinophils % (Manual) Nucleated RBC % Seg Neutrophils # Man Band Neutrophils # Lymphocytes # (Manual) Abs React Lymphs (Man) Monocytes # (Manual) Eosinophils # (Manual) Basophils # (Manual) Metamyelocytes # Myelocytes # Promyelocytes # Blast Cells # WBC Morphology Hypersegmented Neuts Hyposegmented Neuts Hypogranular Neuts Smudge Cells Toxic Granulation Toxic Vacuolation Dohle Bodies Pelger-Huet Anomaly Mina Rods Platelet Estimate Clumped Platelets Plt Clumps, EDTA Large Platelets Giant Platelets Platelet Satelliting Plt Morphology Comment RBC Morphology Dimorphic RBCs Polychromasia Hypochromasia Poikilocytosis Anisocytosis Microcytosis Macrocytosis Spherocytes Pappenheimer Bodies Sickle Cells Target Cells Tear Drop Cells Ovalocytes Helmet Cells [place] Bodies Christoval Rings Jayda Cells Bite Cells Crenated Cell Elliptocytes Acanthocytes (Spur) Rouleaux Hemoglobin C Crystals Schistocytes Malaria parasites Jerry Bodies Hem Pathologist Commnt D-Dimer Sodium Potassium Chloride Carbon Dioxide Anion Gap BUN Creatinine Estimated GFR BUN/Creatinine Ratio Glucose Calcium Total Bilirubin AST ALT Alkaline Phosphatase Troponin T < 0.010 Total Protein Albumin Albumin/Globulin Ratio - EKG Data -: EKG Interpreted by Me EKG shows normal: sinus rhythm, axis, intervals, QRS complexes Rate: normal - EKG Data Interpretation: nonspecific ST-T wave jos 10/30/20 12:58 EKG obtained 1123 EKG interpreted by me Normal sinus rhythm rate 90 bpm normal axis normal intervals no ST elevation ST depression seen in the inferolateral anterior leads 10/30/20 13:00 EKG unchanged from 07/29/2020, 07/17/2019 - Radiology Data Radiology results: report reviewed cxr 2 views: nap - Medical Decision Making Chest pain atypical for ACS: I suspect chest wall pain. Patient has persistent pain at rest. Patient's had normal cardiac work-up during last years hospital admission. She was evaluated by cardiology at that time. D-dimer negative. I do not suspect pulmonary embolism. I strongly recommended follow-up with a primary care physician. [facility] referral request faxed Critical care attestation.: If time is entered above; I have spent that time in minutes in the direct care of this critically ill patient, excluding procedure time. ED Disposition Clinical Impression: HTN (hypertension), Chest pain, Chest wall pain Disposition: - TO HOME OR SELFCARE Is pt being admited?: No Does the pt Need Aspirin: No Condition: Stable Instructions: Nonspecific Chest Pain, Adult, Hypertension (ED) Referrals: KELLI BEDOLLA MD [Staff Physician] - 3-5 Days ALONSO LOZOYA MD [Staff Physician] - 3-5 Days
[2020-10-30 13:31] LABS: RBC Morphology Normal; Total Cells Counted 100
[2020-10-30 13:32] LABS: Platelet Estimate Consistent w Auto
[2020-10-30] MEDS ORDERED: HYDROcodone/ACETAMINOPHEN 5-325 MG TAB PO ONE (14:21)
[2020-10-30 15:44] VITALS: BP 155/81
--- NOTE | 2020-11-01 11:11 | Electrocardiograph Report ---
[facility] Test Date: 2020-10-30 Test Time: 11:23:31 Pat Name: AYESHA TURNER Department: Room: Gender: F Capacity Manager: LASHAWN : 1965 Requested By: MARCI YEH Order Number: [id number] Reading MD: Fletcher Moses Measurements Intervals [place] Rate: 88 P: 68 WV: 143 QRS: 54 QRSD: 83 T: 52 QT: 388 QTc: 471 Interpretive Statements Sinus rhythm Minimal ST depression, diffuse leads No previous ECG available for comparison Electronically Signed On 11-01-2020 11:11:29 EDT by Fletcher Moses
== END 2020-10-30 15:40 | disposition home or self-care (01) ==
LOC: ED 11:15
DX: I10 Essential (primary) hypertension (principal); R07.89 Other chest pain; J45.909 Unspecified asthma, uncomplicated; Z79.899 Other long term (current) drug therapy; Z88.2 Allergy status to sulfonamides; Z88.6 Allergy status to analgesic agent; Z91.041 Radiographic dye allergy status
CPT/HCPCS: 36415; 71046; 80053; 84484; 85007; 85025; 85379; 93005